=== PATIENT | female | born 1975 | race Asian ===

== ENCOUNTER 2018-04-05 10:56 | Emergency (ER) | payer OTHER ==
[~2018-04-05] VITALS: Ht 162.6 cm; Wt 90.9 kg
[2018-04-05] MEDS ORDERED: SIMV-259 PO (11:06)
[2018-04-05] MEDS ORDERED: PERTUSS(ACELL),DIPH,TET VAC/PF 0.5 ML VIAL IM ONE (12:30)
[2018-04-05] MEDS ORDERED: LIDOCAINE/PF 1% 5 ML VIAL INJ ONE (12:30)
[2018-04-05] MEDS ORDERED: IBUPROFEN 600 MG TABLET PO ONE (12:30)
[2018-04-05] MEDS ORDERED: BACITRACIN 0.9 GM PACKET OINTMENT TP ONE (13:30)
[2018-04-05 13:31] VITALS: BP 114/74
== END 2018-04-05 13:48 | disposition home or self-care (01) ==
LOC: EMS 10:57
DX: S61.411A Laceration without foreign body of right hand, initial encounter (principal); W25.XXXA Contact with sharp glass, initial encounter; Y93.89 Activity, other specified; Y92.89 Other specified places as the place of occurrence of the external cause; Y99.8 Other external cause status
CPT/HCPCS: 12002; 90471; 90715; 99283; J3490